=== PATIENT | female | born 1995 | race Caucasian/White ===

== ENCOUNTER 2020-02-20 13:53 | Outpatient (CLI) | payer OTHER, SELFPAY ==
--- NOTE | ~2020-02-20 | XR_ITS ---
EXAMINATION: XR chest 2V EXAM DATE: 02/20/2020 14:28 INDICATION: Cough. TECHNIQUE: Frontal and lateral projections of the chest obtained and reviewed. Comparison is made to prior examination from 11/23/2017. FINDINGS: The lungs are clear. There are no pleural effusions. The cardiomediastinal silhouette is within normal limits. There is no pneumothorax suspected. The bones and soft tissues are unremarkab le. IMPRESSION: No acute cardiopulmonary findings. Reviewed, dictated and finalized at location A.
== END 2020-02-20 13:54 | disposition home or self-care (01) ==
LOC: ANHIMG 13:57
PROVIDERS: PCP Family Medicine; Visit Provider Nurse Practitioner Family
DX: R05 Cough (principal)
CPT/HCPCS: 71046; 87635; C9803; U0003

== ENCOUNTER 2020-05-23 15:44 | Outpatient (CLI) | payer OTHER, SELFPAY ==
--- NOTE | ~2020-05-23 | US_ITS ---
EXAMINATION: US OB <= 14 weeks fetus DATE: 05/23/2020 16:53 INDICATION: Encounter for supervision of normal , first trimester TECHNIQUE: Real-time pelvic transabdominal and transvaginal ultrasound was performed. COMPARISON: None. FINDINGS: The uterus measures 8.2 x 5.7 x 6.1 cm. There is an intrauterine gestational sac. A yolk s ac is identified. heart motion is identified measuring 165 beats per minute (bpm) by M-mode Dop pler. The crown rump length measures 1.6 cm , which correlates with an estimated gestational ag e of 8 weeks and 0 day(s) (+/-) 5 day(s). The right ovary measures 5.3 x 2.8 x 2.7 cm and contains a complex cyst. The left ovary measures 2.9 x 1.9 x 1.9 cm. There is normal vascular flow in the ovaries. There is no free fluid in the pelvis. IMPRESSION: 1. Live intrauterine with an estimated gestational age of 8 weeks and 0 day(s) (+/-) 5 day( s) and an estimated delivery date of 01/02/2021. Reviewed, dictated and finalized at location A. IMPRESSION: 1. Live intrauterine with an estimated gestational age of 8 weeks and 0 day(s) (+/-) 5 day(s) and an estimated delivery date of 01/02/2021.
== END 2020-05-23 15:45 | disposition home or self-care (01) ==
PROVIDERS: PCP Family Medicine; Visit Provider Student in an Organized Health Care Education/Training Program
DX: Z34.91 Encounter for supervision of normal pregnancy, unspecified, first trimester (principal); Z3A.08 8 weeks gestation of pregnancy
CPT/HCPCS: 76801

== ENCOUNTER 2020-10-02 08:31 | Outpatient (CLI) | payer OTHER, SELFPAY ==
[2020-10-02 10:25] LABS: Basophils Percent Auto 0.4 % (0.2-1.2); Eosinophils Absolute Auto 0.1 K/mm3 (0-0.3); Eosinophils Percent Auto 0.8 % (0-4.4); Hematocrit 32.7 % (37.0-47.0); Hemoglobin 10.7 g/dL (12.0-15.0); Immature Granulocyte Absolute 0.11 K/mm3 (0.00-0.031); Mean Corpuscular HGB Conc 32.7 g/dl (32-36); Mean Corpuscular Hemoglobin 29.5 pg (26-34); Mean Corpuscular Volume 90.1 fl (80-100); Mean Platelet Volume 9.7 fl (7.4-10.4); Monocytes Absolute Auto 0.8 K/mm3 (0.1-0.6); Monocytes Percent Auto 7.3 % (2.6-8.5); Neutrophils Absolute Auto 8.2 K/mm3 (1.3-6.7); Neutrophils Percent Auto 76.5 % (45.5-73.1); Platelet Count Result 224 k/mm3 (150-375); Red Blood Count 3.63 M/mm3 (4.2-5.4); Red Cell Distribution Width 13.8 % (11.5-14.5); White Blood Count 10.8 K/mm3 (4.5-10.0)
[2020-10-02 10:35] LABS: Glucose 1 Hour PP 50gm Dose 124 mg/dL
== END 2020-10-02 08:32 | disposition home or self-care (01) ==
PROVIDERS: PCP Family Medicine; Visit Provider Student in an Organized Health Care Education/Training Program
DX: Z34.02 Encounter for supervision of normal first pregnancy, second trimester (principal); Z3A.00 Weeks of gestation of pregnancy not specified
CPT/HCPCS: 36415; 82947; 85025

== ENCOUNTER 2020-11-11 16:21 | Outpatient (CLI) | payer OTHER, SELFPAY ==
--- NOTE | ~2020-11-11 | US_ITS ---
EXAMINATION: US venous doppler LE RT DATE: 11/11/2020 16:56 INDICATION: Right lower limb pain. -related symptoms. TECHNIQUE: Grayscale ultrasound images without and with compression and Doppler ultrasound images of the right lower extremity veins were obtained. COMPARISON: None. FINDINGS: The visualized portions of right common femoral vein, profunda (deep) femoral vein, femoral vein, pop liteal vein, peroneal trunk, posterior tibial veins, peroneal veins, gastrocnemius vein and greater s aphenous vein outflow are patent. IMPRESSION: 1. No deep venous thrombosis in the right lower limb. Reviewed, dictated and finalized at location A. L [employer]ERING [employer]
== END 2020-11-11 16:22 | disposition home or self-care (01) ==
PROVIDERS: PCP Family Medicine; Visit Provider Student in an Organized Health Care Education/Training Program
DX: O26.893 Other specified pregnancy related conditions, third trimester (principal); Z3A.00 Weeks of gestation of pregnancy not specified; M79.604 Pain in right leg
CPT/HCPCS: 93971

== ENCOUNTER 2020-11-25 15:53 | Outpatient (CLI) | payer OTHER, SELFPAY ==
[2020-11-25 16:30] LABS: Basophils Percent Auto 0.2 % (0.2-1.2); Eosinophils Absolute Auto 0.1 K/mm3 (0-0.3); Eosinophils Percent Auto 0.7 % (0-4.4); Hematocrit 31.2 % (37.0-47.0); Hemoglobin 10.4 g/dL (12.0-15.0); Immature Granulocyte Absolute 0.15 K/mm3 (0.00-0.031); Immature Granulocyte Percent A 1.2 % (0-0.5); Lymphocytes Absolute Auto 1.75 K/mm3 (0.9-3.2); Lymphocytes Percent Auto 13.9 % (18.3-44.2); Mean Corpuscular HGB Conc 33.3 g/dl (32-36); Mean Corpuscular Hemoglobin 28.8 pg (26-34); Mean Corpuscular Volume 86.4 fl (80-100); Mean Platelet Volume 10.4 fl (7.4-10.4); Monocytes Absolute Auto 0.9 K/mm3 (0.1-0.6); Monocytes Percent Auto 7.5 % (2.6-8.5); Neutrophils Absolute Auto 9.6 K/mm3 (1.3-6.7); Neutrophils Percent Auto 76.5 % (45.5-73.1); Platelet Count Result 216 k/mm3 (150-375); Red Blood Count 3.61 M/mm3 (4.2-5.4); Red Cell Distribution Width 13.7 % (11.5-14.5); White Blood Count 12.6 K/mm3 (4.5-10.0)
[2020-11-25 17:25] LABS: HIV 1/2 Ab P24 Ag Result Negative (Negative)
[2020-11-26 10:38] LABS: Rapid Plasma Reagin Non-Reactive (NonReactive)
== END 2020-11-25 15:54 | disposition home or self-care (01) ==
LOC: ANHLAB 15:54
PROVIDERS: PCP Family Medicine; Visit Provider Student in an Organized Health Care Education/Training Program
DX: Z34.03 Encounter for supervision of normal first pregnancy, third trimester (principal); Z3A.00 Weeks of gestation of pregnancy not specified
CPT/HCPCS: 36415; 85025; 86592; 86703; G0432

== ENCOUNTER 2020-12-24 09:56 | Outpatient (CLI) | payer OTHER, SELFPAY ==
[2020-12-24 10:15] VITALS: TEMP 37.2; BMI 44.6
--- NOTE | 2020-12-24 10:15 | OBADM ---
This patient, Niesha Llamas, admitted to the OB room 111 for observation for headache and increase in edema. Patient/family oriented to hospital policies and general routines including ID bracelet, bed and alarms, visiting hours, pain management, procedures, bathroom and other care routines, personal items, smoking policy, room service/diet, and visiting hours. Patient/Family are encouraged to report perceived risks to care and to ask questions if they do not understand what they are told or what they should do.
[2020-12-24 10:46] VITALS: BP 116/78; PULSE 94
[2020-12-24 11:01] VITALS: BP 113/74; PULSE 91
[2020-12-24] MEDS: ACETAMINOPHEN 500 MG TABLET 1000 MG PO (11:01)
[2020-12-24 11:31] VITALS: BP 116/82; PULSE 78
[2020-12-24 12:01] VITALS: BP 122/69; PULSE 72
[2020-12-24 12:20] VITALS: TEMP 36.8
== END 2020-12-24 12:51 | disposition home or self-care (01) ==
LOC: ANHOBPP 12:33 → ANHOBOP 12-25 11:22
PROVIDERS: PCP Family Medicine; Visit Provider Student in an Organized Health Care Education/Training Program
DX: R51.9 Headache, unspecified (principal); R60.0 Localized edema
CPT/HCPCS: 99199; A9270; G0378; G0379

== ENCOUNTER 2020-12-28 16:50 | Inpatient (IN) | payer OTHER, SELFPAY ==
[2020-12-28] VITALS (8 sets, daily range): BP systolic 97–123; BP diastolic 54–92; PULSE 80–84; TEMP 36.5–36.8; BMI 44.5
[2020-12-28 17:29] LABS: Basophils Percent Auto 0.2 % (0.2-1.2); Eosinophils Absolute Auto 0.1 K/mm3 (0-0.3); Eosinophils Percent Auto 1.1 % (0-4.4); Hematocrit 31.3 % (37.0-47.0); Hemoglobin 10.4 g/dL (12.0-15.0); Immature Granulocyte Absolute 0.12 K/mm3 (0.00-0.031); Immature Granulocyte Percent A 1.1 % (0-0.5); Lymphocytes Absolute Auto 1.58 K/mm3 (0.9-3.2); Lymphocytes Percent Auto 13.9 % (18.3-44.2); Mean Corpuscular HGB Conc 33.2 g/dl (32-36); Mean Corpuscular Hemoglobin 28.6 pg (26-34); Mean Platelet Volume 10.5 fl (7.4-10.4); Monocytes Percent Auto 8.9 % (2.6-8.5); Neutrophils Absolute Auto 8.6 K/mm3 (1.3-6.7); Neutrophils Percent Auto 74.8 % (45.5-73.1); Platelet Count Result 193 k/mm3 (150-375); Red Blood Count 3.64 M/mm3 (4.2-5.4); Red Cell Distribution Width 15.1 % (11.5-14.5); White Blood Count 11.4 K/mm3 (4.5-10.0)
[2020-12-28] MEDS: DINOPROSTONE 10 MG VAG INSERT VAGINAL (18:12)
--- NOTE | 2020-12-28 18:35 | LDADM ---
This patient, Niesha Llamas, was admitted to Labor/Delivery/Recovery 108 on 12/28/20 at 16:50. Plans for labor, pain management and were discussed with patient. Patient/family oriented to hospital policies and general routines including ID bracelet, bed and alarms, visiting hours, pain management, procedures, bathroom and other care routines, personal items, smoking policy, room service/diet and guest tray routines, infant security routines, and visiting hours. Patient/Family are encouraged to report perceived risks to care and to ask questions if they do not understand what they are told or what they should do. See OBIX for further documentation.
[2020-12-29] VITALS (23 sets, daily range): BP systolic 103–129; BP diastolic 57–79; PULSE 76–100; TEMP 36.6–37
[2020-12-29] MEDS: OXYTOCIN 30 UNITS/NS 500 ML 30 UNITS/500 ML BAG 6 UNITS IV CONT (06:39)
[2020-12-29] MEDS: LACTATED RINGERS 1,000 ML 125 ML IV CONT ×2 (06:39→20:49)
--- NOTE | 2020-12-29 08:30 | PM.IMHP ---
H&P: HPI History of Present Illness Date/Time: 12/29/20 08:30 Patient is a 25-year-old last menstrual period unknown. Patient is currently 39 weeks and 3 days gestation with an CASA 01/02/2021. Patient is dated by an ultrasound on 05/23/2020 weeks gestation. Patient presented to Labor and delivery on the evening of 12/28/2019 for scheduled elective induction of labor at term. Patient reports feeling well. Denies any vaginal bleeding, leakage of fluid, or contractions. Reports good movement. Chief Complaint: induction of labor Narrative: Niesha Llamas is a 25 year old female Review of Systems Review of Systems: All systems reviewed & are unremarkable except as noted in HPI and below Constitutional: Constitutional: Reports as per HPI, Reports no additional constitutional complaints, Denies chills, Denies fever(s), Denies headache(s) and Denies night sweats Eyes: Eyes: Reports as per HPI and Reports no additional eye complaints ENT: Reports system reviewed and no additional complaints, except as documented, Reports as per HPI, Reports Normal hearing present and Denies headache(s) Cardiovascular: Cardiovascular: Reports as per HPI, Reports no additional cardiovascular complaints, Denies chest pain and Denies dyspnea Respiratory: Respiratory: Reports as per HPI, Reports no additional respiratory complaints, Denies cough and Denies dyspnea Gastrointestinal: Gastrointestinal: Reports as per HPI, Reports no additional gastrointestinal complaints, Denies abdominal pain, Denies change in bowel habits, Denies change in stool character, Denies nausea and Denies vomiting Genitourinary: Genitourinary: Reports no additional female genitourinary complaints, Reports as per HPI, Denies abnormal vaginal bleeding, Denies genital lesions, Denies hot flashes, Denies dyspareunia, Denies pelvic pain, Denies sexual dysfunction, Denies urinary incontinence, Denies vaginal discharge, Denies vaginal dryness and Denies vaginal odor Musculoskeletal: Musculoskeletal: Reports no additional musculoskeletal complaints and Reports as per HPI Integumentary/Breasts: Skin/Breast: Reports system reviewed and no additional complaints, except as docu, Reports as per HPI, Denies breast pain and Denies nipple discharge Neurologic: Reports system reviewed and no additional complaints, except as documented, Reports as per HPI, Reports Normal hearing present and Denies headache(s) Psychiatric: Psychiatric: Reports no additional psychiatric complaints, Reports as per HPI, Denies anxiety and Denies depression Endocrine: Endocrine: Reports no additional endocrine complaints and Reports as per HPI Hematologic/Lymphatic: Hematologic/Lymphatic: Reports no additional hematologic/lymphatic complaints and Reports as per HPI Allergic/Immunologic: Allergic/Immunologic: Reports no additional allergic/immunologic complaints and Reports as per HPI PMFSH Past Medical History Medical History (Updated 12/29/20 @ 08:35 by Jing Ding MD) Anxiety HSV-1 (herpes simplex virus 1) infection Surgical History Surgical History [place] teeth removed Family History Family History Grandparent Diabetes mellitus Carcinoma of colon Father Hypertension Family history of migraine headaches Sibling Family history of migraine headaches Social History Social History Smoking status: Never smoker Second hand tobacco smoke exposure: No Alcohol intake: never Substance use: never Spiritual care concerns: No Meds Home Medications and Allergies Home Medications Medication Instructions Recorded Confirmed Type PNV-DHA 1 cap PO HS 12/24/20 12/24/20 History Slow Fe 142 mg PO HS 12/24/20 12/24/20 History acetaminophen 1,000 mg PO Q6H PRN 12/24/20 12/24/20 History Allergies Allergy/AdvReac Type Severit
--- NOTE | 2020-12-29 08:36 | WPDHPUPDATE1 ---
History and Physical Update Update Date/Time: 12/29/20 08:36 History and Physical has been reviewed, including an updated exam of the patient. There are NO changes in the patient's condition. Risks, benefits, and alternatives have been discussed and questions answered. Patient agrees to proceed with procedure.
--- NOTE | 2020-12-29 09:04 | WPDHPUPDATE1 ---
History and Physical Update Update Date/Time: 12/29/20 09:04 History and Physical has been reviewed, including an updated exam of the patient. There are NO changes in the patient's condition. Risks, benefits, and alternatives have been discussed and questions answered. Patient agrees to proceed with procedure.
[2020-12-29 09:55] LABS: Rapid Plasma Reagin Non-Reactive (NonReactive)
--- NOTE | 2020-12-29 12:23 | WPDANESEPP ---
Anes - Eval Pre Procedure Procedure: Labor epidural Date/Time: 12/29/20 12:23 Surgeon: Timur Preop Diagnosis: Abd pain with contractions Pre Op Diagnosis: Induction of Labor Patient Data Age: 25 Gender: F Height: 5 ft 7 in Weight: 129 kg Last Vital Signs Temp 98 F 12/29/20 07:23 Pulse 78 12/29/20 12:00 BP 115/68 12/29/20 12:00 Allergies Allergy/AdvReac Type Severity Reaction Status Date / Time No Known Allergies Allergy Verified 12/26/20 13:59 Home Medications Medication Instructions Recorded Confirmed Type PNV-DHA 1 cap PO HS 12/24/20 12/24/20 History Slow Fe 142 mg PO HS 12/24/20 12/24/20 History acetaminophen 1,000 mg PO Q6H PRN 12/24/20 12/24/20 History Laboratory Tests 12/28/20 12/28/20 12/28/20 17:19 17:19 17:19 WBC 11.4 K/mm3 H K/mm3 (4.5-10.0) RBC 3.64 M/mm3 L M/mm3 (4.2-5.4) Hgb 10.4 g/dL L g/dL (12.0-15.0) Hct 31.3 % L % (37.0-47.0) MCV 86.0 fl fl (80-100) MCH 28.6 pg pg (26-34) MCHC 33.2 g/dl g/dl (32-36) RDW 15.1 % H % (11.5-14.5) Plt Count 193 k/mm3 k/mm3 (150-375) MPV 10.5 fl H fl (7.4-10.4) Immature Gran % (Auto) 1.1 % H % (0-0.5) Neut % (Auto) 74.8 % H % (45.5-73.1) Lymph % (Auto) 13.9 % L % (18.3-44.2) [place] % (Auto) 8.9 % H % (2.6-8.5) Eos % (Auto) 1.1 % % (0-4.4) Baso % (Auto) 0.2 % % (0.2-1.2) Lymph # (Auto) 1.58 K/mm3 K/mm3 (0.9-3.2) [place] # (Auto) 1.0 K/mm3 H K/mm3 (0.1-0.6) Eos # (Auto) 0.1 K/mm3 K/mm3 (0-0.3) Baso # (Auto) 0.0 K/mm3 K/mm3 (0.0-0.1) Abs Immat Gran (auto) 0.12 K/mm3 H K/mm3 (0.00-0.031) Absolute Neuts (auto) 8.6 K/mm3 H K/mm3 (1.3-6.7) Absolute Nucleated RBC 0.0 K/mm3 K/mm3 (0.0-0.012) Nucleated RBC % 0.0 % % (0.0-0.2) RPR Non-reactive (NonReactive) Blood Type A Positive Antibody Screen Negative Patient hx anesthesia problems: none Family hx anesthesia problems: none PMFSH Past Medical History Medical History Anxiety HSV-1 (herpes simplex virus 1) infection Morbid obesity Obesity affecting and not yet delivered Surgical History Surgical History [place] teeth removed Family History Family History Grandparent Diabetes mellitus Carcinoma of colon Father Hypertension Family history of migraine headaches Sibling Family history of migraine headaches Social History Social History Smoking status: Never smoker Second hand tobacco smoke exposure: No Alcohol intake: never Substance use: never Spiritual care concerns: No Exam Day of Procedure 12/29/20 12:23 Patient weight: morbidly obese Airway: Mallampati scale class II Neurological: alert and oriented
[2020-12-30] VITALS (183 sets, daily range): BP systolic 71–147; BP diastolic 40–124; PULSE 32–126; RESP 16–20; TEMP 36.4–38.7; O2SAT 70–100
[2020-12-30] MEDS: OXYTOCIN 30 UNITS/NS 500 ML 30 UNITS/500 ML BAG 6 UNITS IV CONT (07:12)
[2020-12-30] MEDS: LACTATED RINGERS 1,000 ML 125 ML IV CONT ×3 (07:39→19:11)
--- NOTE | 2020-12-30 08:32 | P.PNOB_ITS ---
OB - PN: Subj Subjective Date/time seen: 12/30/20 08:32 Patient seen at bedside at 7:10 a.m. Doing well. SVE /-2. AROM performed, clear fluid noted. EFM category 1. [place] shows irregular contractions. Plan is to continue pitocin. Continuous EFM and toco. Patient may have an epidural when desired. OB - PN: Obj Data Labs CBC & Chem 7: 12/28/20 17:19 Labs: Laboratory Results - last 24 hr 12/28/20 17:19 RPR Non-reactive OB - PN A/P Time Spent With Patient Time: Total time spent is greater than 50% in coordination of care (as document ed) at patient's floor/unit and/or counseling patient:
--- NOTE | 2020-12-30 18:44 | PM.OBPNLAB ---
Pain Control Date/time seen: 12/30/20 18:44 Patient progressed to fully dilated at approx. 4:00 p.m. She was encouraged to begin pushing. head was at -1 station at onset of pushing. Patient pushed for approximately 2 hrs 30 mins. during which time head descended to 0 station. There was increasing caput noted as well. Patient became increasingly fatigued and frustrated by lack of progress. Discussion had with patient regarding low likelihood of successful vaginal delivery. Recommendation was made to proceed with a section for arrest of descent. Risks and benefits of a section were discussed with patient and . Patient implied an understanding and agrees with plan. Anesthesia notified. Was also notified by RN that recent temp to 101.7. There is concern for possible chorioamnionitis as intermittent episodes of tachycardia has also been noted on EFM during pushing course. Will plan to treat postoperatively as antibiotics will not be able to be administered prior to section. All questions and concerns addressed.
--- NOTE | 2020-12-30 18:46 | WPDANESEFPP ---
Anes - Eval Final PreProcedure Day of Procedure 12/30/20 18:46 Patient weight: morbidly obese Heart: regular rate and rhythm Lungs: clear to auscultation and normal air movement Airway: Mallampati scale class II Neurological: alert and oriented Last oral intake: >/= 8 hours ASA classification: III Emergent: no Anesthetic plan: proceed Anesthesia type and monitoring: regional epidural and standard monitoring Other findings: C section Informed Consent: The patient's anesthetic plan and its attendant risks and benefits were discussed with the patient/family/POA. Questions were solicited and answers provided to the satisfaction of the patient/family/POA.
[2020-12-30] MEDS: ceFAZolin 3 GM/D5W 100 ML 100 ML IVPB (18:58)
[2020-12-30] MEDS: MORPHINE SULFATE (*CRX) 2 MG/ML INJ IV PUSH (20:58)
--- NOTE | 2020-12-30 21:03 | PM.PROC ---
Procedure Note - Detailed Date of procedure: 12/30/20 Pre-op diagnosis: Induction of Labor Intrauterine at 39w4d Arrest of dilation Post-op diagnosis: same Procedure performed: Primary low transverse section via Pfannenstiel Description of procedure: The patient was taken to the operating room, where she was transferred to the operating room table. The patient was placed in dorsal supine position with a leftward tilt. She was prepped and draped in the usual sterile fashion. Epidural anesthesia was tested and found to be adequate. A Pfannenstiel skin incision was made with a scalpel and carried through to underlying layer of fascia with the Bovie. The fascia was incised in the midline and the incision was extended laterally with the use of forceps and Carmen scissors. The inferior aspect of the fascial incision was grasped with Mary clamps, elevated, and the underlying rectus muscle were dissected off with Carmen scissors. Attention was then turned to the superior aspect of the fascial incision, which in a similar manner, was grasped with Mary clamps, elevated, and the underlying rectus muscles were also dissected off with Carmen scissors. The rectus muscles were in the midline and the peritoneal cavity was entered bluntly. This incision was extended superiorly and inferiorly with good visualization of the bladder and care was taken to avoid blood vessels. A bladder blade was inserted. The vesicouterine peritoneum was identified and incised sharply with Metzenbaum scissors. This incision was extended laterally with Metzenbaum scissors and a bladder flap was created digitally. The bladder blade was replaced. A low-transverse uterine incision was made with a scalpel. This incision was extended laterally with bandage scissors. Amniotomy was performed. Clear amniotic fluid was noted. The 's head was deep within the pelvis. The head was grasped and the body as well as the head was gently guided superiorly to the level of the uterine incision. The infant's head was delivered easily and atraumatically without difficulty followed by the neck, shoulders, and rest of body with gentle fundal pressure. The infant's nose and mouth were suctioned bulb suction. The was crying spontaneously. The cord was clamped and cut and the was handed off to waiting nursing staff. A segment of cord was collected for cord gases. Cord blood was also collected. The placenta was then delivered manually with gentle uterine massage. Uterus was exteriorized and cleared of all clots and debris. The uterus was noted to be atonic. Vigorous massage was performed. The uterine incision was reapproximated with 0 Vicryl in a running, locked fashion. Several areas of bleeding beneath the incision as well as along the right aspect of the incision were noted to be bleeding. These areas were made hemostatic with a combination of 2-0 Monocryl and 0 Vicryl using short running locked segments and figure of eight sutures. A second imbricating layer using 0 Monocryl performed. On inspection, the uterus, ovaries, and fallopian tubes appeared to be normal bilaterally. The uterus was replaced into the abdominal cavity. The gutters were cleared of all clots and debris. The uterine incision was inspected again. A bleeding vessel was noted again along the right aspect of the uterine incision. This vessel was ligated with 0 Vicryl. Excellent hemostasis was noted. Hemaderm was applied across the uterine incision. Seprafilm was also applied across the uterine incision and anterior surface of the uterus. The peritoneum was reapproximated with 2-0 Monocryl. The fascia was then closed with 0 Vicryl in a running fashion. The subcutaneous layer was irrigated with water. Pinpoint areas of bleeding were made hemostatic with Bovie. The subcutaneous layer was reapproximated with 2-0 plain and the skin was then closed with 4-0 Monocryl in a subcuticular fashion. The skin was cleansed and dried. Dermaflex skin a
[2020-12-30] MEDS: OXYTOCIN 30 UNITS/NS 500 ML 30 UNITS/500 ML BAG 125 UNITS IV CONT (22:15)
[2020-12-30] MEDS: CLINDAMYCIN 900 MG/D5W 50 ML 900 MG/50 ML PIGGYBACK 50 MG IVPB (23:25)
[2020-12-31] VITALS (9 sets, daily range): BP systolic 107–146; BP diastolic 51–84; PULSE 70–87; RESP 16–18; TEMP 36.7–37; O2SAT 98–100
[2020-12-31] MEDS: AMPICILLIN 2 GM/NS 100 ML 2 GM/100 ML BAG IVPB ×4 (00:50→21:00)
[2020-12-31] MEDS: GENTAMICIN SULFATE INJ 445 MG in DEXTROSE 5% 100 ML 111.13 MG IVPB (01:45)
[2020-12-31] MEDS: HYDROcodone/acetaminophen (*CRX) 5-325 MG TABLET 1 TAB PO ×2 (04:27→07:47)
[2020-12-31] MEDS: IBUPROFEN 600 MG TABLET PO ×3 (04:28→19:43)
[2020-12-31] MEDS: DEXTROSE 5%/0.45% SOD CHL 1,000 ML 125 ML IV CONT ×2 (04:45→13:49)
[2020-12-31 05:12] LABS: Basophils Percent Auto 0.2 % (0.2-1.2); Eosinophils Absolute Auto 0.1 K/mm3 (0-0.3); Eosinophils Percent Auto 0.6 % (0-4.4); Hematocrit 25.4 % (37.0-47.0); Hemoglobin 8.2 g/dL (12.0-15.0); Immature Granulocyte Absolute 0.09 K/mm3 (0.00-0.031); Immature Granulocyte Percent A 0.7 % (0-0.5); Lymphocytes Absolute Auto 1.35 K/mm3 (0.9-3.2); Lymphocytes Percent Auto 11.2 % (18.3-44.2); Mean Corpuscular HGB Conc 32.3 g/dl (32-36); Mean Corpuscular Hemoglobin 28.3 pg (26-34); Mean Corpuscular Volume 87.6 fl (80-100); Mean Platelet Volume 10.4 fl (7.4-10.4); Monocytes Absolute Auto 1.1 K/mm3 (0.1-0.6); Monocytes Percent Auto 8.8 % (2.6-8.5); Neutrophils Absolute Auto 9.5 K/mm3 (1.3-6.7); Neutrophils Percent Auto 78.5 % (45.5-73.1); Platelet Count Result 165 k/mm3 (150-375); Red Cell Distribution Width 15.3 % (11.5-14.5); White Blood Count 12.1 K/mm3 (4.5-10.0)
[2020-12-31] MEDS: DOCUSATE SODIUM 100 MG CAPSULE PO ×2 (07:46→16:50)
[2020-12-31] MEDS: MULTIVIT/MIN/PREN/FOL AC/IRON TABLET 1 TAB PO (07:46)
[2020-12-31] MEDS: POLYSACCHARIDE IRON COMPLEX 150 MG CAPSULE PO ×2 (07:46→16:50)
[2020-12-31] MEDS: CLINDAMYCIN 900 MG/D5W 50 ML 900 MG/50 ML PIGGYBACK 50 MG IVPB ×2 (08:51→16:50)
--- NOTE | 2020-12-31 09:10 | PC.NURSE ---
Mother called out for assist with feeding. Consulted with patient, reports has had some difficulties with latching and has been given the nipple shield. Discussed nipple shield precautions and possible complications. Suggested to attempt to breast first without shield, if unable to latch return to shield use. Instructions given on application and cleaning of shield. . Patient able to return demonstration on proper application of shield. Discussed the need to initiate pumping if continues to nurse with the shield. Patient verbalizes understanding. Mother has nipple discomfort to right nipple with latch and during most of the feeding. Both nipples are reddened, nipple care reviewed and lanolin provided. Reviewed infant feeding cues, frequencies, duration of feedings, feeding elimination flow sheet, and signs of adequate intake. Demonstrated stimulation techniques to wake for feeding. Assisted with infant to left breast without shield. Reviewed positioning/alignment in football cross cradle, holding breast in C hold and guided asymmetrical latch on. was able to latch correctly within a few attempts. nursed eagerly, with steady draws and frequent swallowing noted. Reviewed signs of a correct latch, effective nursing and suck swallow ratio. Infant was able to maintain latch. Mother reported tenderness at times, infant had slipped to shallow latch. Demonstrated how to adjust latch more deeply while feeding. Mother quickly reports she can feel is latched more deeply and has minimal tenderness. Suggested to stimulate infant while feeding to keep infant awake and nursing effectively for increased stimulation and increased intake. Instructed mother to call out for RN assistance if she is unable to latch infant for feeding or she has discomfort with nursing. Instructed feeding should be initiated three hours from start of last feeding or if feeding cues are noted before. Mother voiced understanding of information shared.
--- NOTE | 2020-12-31 11:27 | WPDANLDPN2 ---
Anes-Prog Note L&D Date/Time: 12/31/20 11:27 Comfortable throughout: section Epidural/Spinal procedure site: clean & non-tender Neuro status: Neuro function grossly intact. Cardiovascular status: normal Respiratory status: normal Airway patency: baseline Mental status: baseline Post-Op hydration status: normal Vital Signs: Last Vital Signs Temp 36.8 C 12/31/20 07:45 Pulse 84 12/31/20 07:45 Resp 16 12/31/20 07:45 BP 111/74 12/31/20 07:45 Pulse Ox 98 12/31/20 07:45 Pain score (VAS): 1 I/O: Intake & Output 12/30/20 12/31/20 12/31/20 23:59 07:59 15:59 Intake Total 2300 1050 150 Output Total 528 400 Balance 1772 650 150 Post-procedural complaints: none Patient feedback: Patient satisfied with anesthetic care.
[2020-12-31] MEDS: HYDROcodone/acetaminophen (*CRX) 10-325 MG TABLET 1 TAB PO ×4 (11:28→22:55)
--- NOTE | 2020-12-31 11:33 | WPDANLDNPN2 ---
Anes-Prog Note L&D-Neuraxial Date/Time: 12/31/20 11:33 Neuraxial medications: epidural PF morphine Opiod-related complaints: none Patient feedback: Patient satisfied with post-operative pain management.
--- NOTE | 2020-12-31 12:18 | P.PNOB_ITS ---
OB - PN: Subj Subjective Date/time seen: 12/31/20 12:18 Late entry. Patient seen at approx. 7:40 a.m. Reports feeling extremely tired, however, otherwise, doing well. Pain well controlled with medication. Denies any headache, chest pain, SOB, N/V. Minimal- moderate lochia. No ambulation yet. Vivar catheter in place. OB - PN: Obj Data Labs CBC & Chem 7: 12/31/20 04:11 Labs: Laboratory Results - last 24 hr 12/31/20 04:11 WBC 12.1 H RBC 2.90 L Hgb 8.2 L Hct 25.4 L MCV 87.6 MCH 28.3 MCHC 32.3 RDW 15.3 H Plt Count 165 MPV 10.4 Immature Gran % (Auto) 0.7 H Neut % (Auto) 78.5 H Lymph % (Auto) 11.2 L [place] % (Auto) 8.8 H Eos % (Auto) 0.6 Baso % (Auto) 0.2 Lymph # (Auto) 1.35 [place] # (Auto) 1.1 H Eos # (Auto) 0.1 Baso # (Auto) 0.0 Abs Immat Gran (auto) 0.09 H Absolute Neuts (auto) 9.5 H Absolute Nucleated RBC 0.0 Nucleated RBC % 0.0 OB - PN A/P Assessment and Plan (1) Delivery by section using transverse incision of lower segment of uterus: Code(s): O82 - Encounter for delivery without indication Status: Acute Assessment and Plan: POD#1 doing well continue routine postoperative care dc vivar encourage ambulation (2) Chorioamnionitis: Code(s): O41.1290 - Chorioamnionitis, unspecified trimester, not applicable or unspecified Status: Acute Assessment and Plan: afebrile continue antibiotics x 24 hours Time Spent With Patient Time: Total time spent is greater than 50% in coordination of care (as documented) at patient's floor/unit and/or counseling patient: Exam Const: General: cooperative, healthy appearing, comfortable and no acute distress GI: Inspection: non-distended GI Palp: Yes Soft to palpation and Yes Tenderness to palpation present (GI) (appropriately tender) Other: fundus firm below umbilicus; inc covered with bandage c/d/i Extrem: Right lower extremity: edema Details: 2+ Left lower extremity: edema Details: 2+
--- NOTE | 2020-12-31 12:30 | PC.NURSE ---
Mother called out for assist with feeding. Assisted with to right breast without shield. Reviewed positioning/alignment in football cross cradle, holding breast in C hold and guided asymmetrical latch on. made several eager attempts and was was unable to latch correctly. Right nipple is more round and slightly flat to left nipple. Shield applied. Infant latched quickly nursing eagerly, with steady draws and frequent swallowing noted. Reviewed signs of a correct latch, effective nursing and suck swallow ratio. was able to maintain latch. Mother reported tenderness at times, had slipped to shallow latch. Demonstrated how to adjust latch more deeply while feeding. Mother quickly reports she can feel is latched more deeply and has minimal tenderness. Right nipple has a small scab to center, reviewed nipple care. Suggested to stimulate infant while feeding to keep infant awake and nursing effectively for increased stimulation and increased intake. Advised mother pumping should be initiated after this feeding. Instructed mother to call out for RN assistance if she is unable to latch for feeding or she has discomfort with nursing. Instructed feeding should be initiated three hours from start of last feeding or if feeding cues are noted before. Mother voiced understanding of information shared.
--- NOTE | 2020-12-31 14:48 | PC.NURSE ---
Breast pump provided due to nipple shield use. Instructions given on breast pump care and usage, pumping schedule, nipple care, and collection and storage of breast milk. Encouraged [id number], breast massage and manual expression to stimulate supply. Assessed patient for correct flange size, placement and draw. Patient verbalizes and demonstrates understanding of instructions.
[2020-12-31 15:42] LABS: Gentamicin Random 1.7 ug/mL (5.0-12.0)
[2020-12-31] MEDS: SIMETHICONE 80 MG TAB.CHEW PO ×2 (19:43→21:40)
[2021-01-01] MEDS: HYDROcodone/acetaminophen (*CRX) 10-325 MG TABLET 1 TAB PO ×3 (03:20→14:41)
[2021-01-01 06:22] LABS: Estimated CRCL calculation 148 ml/min; Estimated Glomerular Filt Rate > 60
[2021-01-01 08:15] VITALS: BP 120/73; PULSE 100; RESP 18; TEMP 36.9; O2SAT 99
--- NOTE | 2021-01-01 08:24 | P.PNOB_ITS ---
OB - PN: Subj Subjective Date/time seen: 01/01/21 08:24 Patient doing well this morning. Pain well controlled with medication. Denies any headache, chest pain, shortness of breath, nausea, or vomiting. Ambulating without difficulty. Voiding well. No passage of flatus yet. OB - PN: Obj Data Labs CBC & Chem 7: 12/31/20 04:11 01/01/21 05:53 Labs: Laboratory Results - last 24 hr 12/31/20 01/01/21 14:25 05:53 Creatinine 0.70 Estim Creat Clear Calc 148 Estimated GFR > 60 Random Gentamicin 1.7 L OB - PN A/P Assessment and Plan (1) Delivery by section using transverse incision of lower segment of uterus: Code(s): O82 - Encounter for delivery without indication Status: Acute Assessment and Plan: POD#2 doing well continue routine postoperative care encourage ambulation and use of IS anticipate dc home tomorrow (2) Chorioamnionitis: Code(s): O41.1290 - Chorioamnionitis, unspecified trimester, not applicable or unspec ified Status: Acute Assessment and Plan: s/p antibiotics x 24 hours Time Spent With Patient Time: Total time spent is greater than 50% in coordination of care (as documented) at patient's floor/unit and/or counseling patient: Exam Const: General: cooperative, healthy appearing, comfortable and no acute distress GI: GI Palp: Yes Soft to palpation and Yes Tenderness to palpation present (GI) (appropriately tender) Other: fundus firm below umbilicus; inc c/d/i Extrem: Right lower extremity: edema Details: 2+ Left lower extremity: edema Details: 2+
[2021-01-01] MEDS: MULTIVIT/MIN/PREN/FOL AC/IRON TABLET 1 TAB PO (09:04)
[2021-01-01] MEDS: POLYSACCHARIDE IRON COMPLEX 150 MG CAPSULE PO ×2 (09:04→19:40)
[2021-01-01] MEDS: DOCUSATE SODIUM 100 MG CAPSULE PO ×2 (09:04→19:40)
[2021-01-01] MEDS: IBUPROFEN 600 MG TABLET PO ×3 (09:05→23:35)
--- NOTE | 2021-01-01 09:50 | PC.NURSE ---
Consult with pt., mother reports she bottle fed during the night. Infant has been sleepy today and she plans to pump and bottle feed today. Requested mother call out if she desires assist.
[2021-01-01] MEDS: SIMETHICONE 80 MG TAB.CHEW PO ×3 (14:40→23:35)
--- NOTE | 2021-01-01 15:39 | PC.NURSE ---
Assisted mother with a pump thru her insurance. Mother states she plans to pump and bottle feed.
[2021-01-01] MEDS: HYDROcodone/acetaminophen (*CRX) 5-325 MG TABLET 1 TAB PO ×2 (19:40→23:35)
[2021-01-01 19:42] VITALS: BP 121/70; PULSE 95; RESP 16; TEMP 36.9
[2021-01-02] MEDS: IBUPROFEN 600 MG TABLET PO (05:15)
[2021-01-02] MEDS: HYDROcodone/acetaminophen (*CRX) 5-325 MG TABLET 1 TAB PO ×2 (05:15→08:22)
[2021-01-02] MEDS: SIMETHICONE 80 MG TAB.CHEW PO ×2 (05:15→08:22)
[2021-01-02 07:35] VITALS: BP 112/70; PULSE 88; RESP 16; TEMP 36.9; O2SAT 97
[2021-01-02] MEDS: MULTIVIT/MIN/PREN/FOL AC/IRON TABLET 1 TAB PO (08:22)
[2021-01-02] MEDS: DOCUSATE SODIUM 100 MG CAPSULE PO (08:22)
[2021-01-02] MEDS: POLYSACCHARIDE IRON COMPLEX 150 MG CAPSULE PO (08:22)
--- NOTE | 2021-01-02 08:25 | PC.NURSE ---
Patient viewed the discharge video Mother & Baby Care, The First Two Weeks . Patient was given the opportunity and encouraged to ask questions. Patient verbalized understanding of information shared and has been given the mother/baby guide for home reference.
[2021-01-02] MEDS: MEASLES,MUMPS,RUBELLA VACCINE 0.5 ML VIAL SUB-Q (08:35)
--- NOTE | 2021-01-02 09:30 | PC.NURSE ---
8425 continued: Mother states when her milk is in she may attempt infant to breast. Discussed bridging to breast techniques, reviewed nipple shield cleaning and application. Stressed to call for apt or with questions.
--- NOTE | 2021-01-02 09:30 | PC.NURSE ---
Consulted with patient, mother reports she plans to pump and bottle feed. Reviewed set up of pump thru her insurance. Mother is pumping 5-6 mls per session, mother is concerned volume is not more. Assured her this is normal at this time and to continue with regular pumping with massage and warm moist heat before. Parents are able to feed by bottle, infant is eagerly nippling EBM/formula. Reviewed breast pump care and usage, pumping schedule, nipple care, and collection and storage of breast milk. Encouraged [id number], breast massage and manual expression to stimulate supply. Mother is pumping without difficulties or discomfort Mother is feeding as required and waking to feed if needed. Infant is currently meeting outcomes for weight, output, jaundice and feeding frequencies. Mother states she feels confident to current feeding plan of pump and bottle at home. Reviewed transition to breast milk, signs of adequate intake, and engorgement/relief. Instructed to call ICP if intake/output less than required. Reviewed regular medications mother is taking. Information provided per Krystal. Reviewed community resources on the [facility] website and in the Mom/Baby guide. Information on outpatient services provided. Mother has no further questions at this time. .
--- NOTE | 2021-01-02 09:52 | PM.OBPNVD ---
OB - PN: Subj Subjective Date/time seen: 01/02/21 09:52 She states she is doing well. Baby is doing well. She has adequate pain control. She has ambulated without problems. Has overall leg pain stiffness. No change since delivery. Lochia mild. Tolerating regular diet. OB - PN: Obj Data Labs CBC & Chem 7: 12/31/20 04:11 01/01/21 05:53 OB - PN A/P Assessment and Plan (1) Delivery by section using transverse incision of lower segment of uterus: Code(s): O82 - Encounter for delivery without indication Status: Acute Assessment and Plan: POD3. She is doing well. Discharge to home. Discharge precautions discussed. No signs of DVT. (2) Postoperative anemia: Code(s): D64.9 - Anemia, unspecified Status: Acute Assessment and Plan: Asymptomatic. Continue oral iron therapy. Time Spent With Patient Time: Total time spent is greater than 50% in coordination of care (as documented) at patient's floor/unit and/or counseling patient: Exam Const: General: comfortable and no acute distress Eyes: General: appearance normal, both eyes and all related structures Resp: Effort & Inspection: normal respiratory effort GI: Other: soft, uterus below umbilicus, incision intact no drainage Extrem: Other: 2+ edema bilaterally, neg Homans no erythema Psych: Mental Status: mental status grossly normal Affect: normal affect
--- NOTE | 2021-01-02 09:57 | PM.OBDSVD ---
DS: Admitting Diagnosis Admitting Diagnosis Admitting Diagnosis: 1. Induction of labor. DS: Discharge Diagnosis Discharge Diagnosis (1) Chorioamnionitis: Code(s): O41.1290 - Chorioamnionitis, unspecified trimester, not applicable or unspecified Status: Acute (2) Postoperative anemia: Code(s): D64.9 - Anemia, unspecified Status: Acute (3) Failure of descent in labor, delivered, current hospitalization: Code(s): O62.2 - Other uterine inertia Status: Acute OB - DS: Summary OB Procedures : Ultrasound OB Procedures Intrapartum: low cervical, transverse OB Procedures: : Antibiotics Peripartum Data Delivery Method: Section (Low transverse) Procedures: Procedures Operation Date: 12/30/20 19:00 Actual Procedures Side Surgeon p Section Not Applicable Jnig Ding MD complications: none Time Spent with Patient Time attestation: Total time spent providing and/or coordinating discharge services: Time spent: Less than 30 minutes Exam Const: General: no acute distress Eyes: General: appearance normal, both eyes and all related structures Resp: Effort & Inspection: normal respiratory effort GI: Inspection: normal to inspection and other (incision intact no drainage) Extrem: General: other (bilateral edema neg Homans bilat) Psych: Appearance: grossly normal DS: Data Data Completed and Pending Pending studies at discharge: Pending at discharge 12/30/20 19:24 Surgical [PTH] Routine Procedures/Treatments: 1. Induction of labor 2. Primary low transverse cesearean section Additional Comments Additional comments: Patient was admitted on 12/28/20 for medical induction of labor. Labor significant for failure to descend after over 2 hours of pushing. Chorioamnionitis. She underwent uncomplicated primary cesearean section. Postoperatively she did well. She had anemia of . She had asymptomatic post-op anemia. She had adequate pain control with medication. She was discharged to home on post op day 3. Discharge Plan Discharge Attending physician on discharge: Ilia Helm Consulting providers: Mark Miles Discharging Clinician: Ilia Helm Anticipated Discharge Date/Time: 01/02/21 10:08 Patient Disposition: Home, Self-Care Activity: may shower, no straining, may drive after 2 weeks, follow weight bearing status and pelvic rest Diet: regular Wound Care Instructions: keep dressing dry Discharge Instructions: Post ceserean sections instructions. May take over the counter Ibuprofen for pain as well as prescribed medication as needed. Continue SloFe over the counter daily. May take Miralax and Colace as needed. Patient Instructions: Antibiotic Form Stand Alone Forms: General Discharge Information Follow-up/Referrals: Jing Ding MD [Physician] - 2 Weeks (Call for appointment) Discharge Medications: New hydrocodone-acetaminophen 5-325 mg Tablet 1 tablet PO Q3H PRN (Reason: Moderate Pain (4-6)) Qty: 25 RF: 0 Continued PNV-DHA 27 mg iron-1 mg -300 mg capsule 1 cap PO HS RF: 0 Slow Fe 142 mg (45 mg iron) Tablet Extended Release 142 mg PO HS RF: 0 Discontinued acetaminophen 500 mg Capsule 1,000 mg PO Q6H PRN (Reason: Headache) RF: 0 Date of admission: 12/28/20 16:50 Primary Care Provider: Darvin Hernandez Admitting Provider: Jing Ding Attending physician on admission: Jing Ding Condition: Stable
[2021-01-05 11:07] VITALS: BP 119/68; PULSE 68; RESP 20; TEMP 36.4; O2SAT 100
== END 2021-01-02 12:30 | disposition home or self-care (01) | DRG 786 ==
LOC: ANHLDR 12-29 13:15 → ANHOB2 01-02 10:15 → ANHLDR 01-05 19:02 → ANHOB2 01-05 19:02
PROVIDERS: Admitting Provider Student in an Organized Health Care Education/Training Program; PCP Family Medicine; Visit Provider Obstetrics & Gynecology
PROC: 10D00Z1 Extraction of Products of Conception, Low, Open Approach (ICD-10-PCS; CPT 59514; principal; 2020-12-30 19:00)
DX: O62.2 Other uterine inertia (principal); O41.1230 Chorioamnionitis, third trimester, not applicable or unspecified; O75.2 Pyrexia during labor, not elsewhere classified; O99.214 Obesity complicating childbirth; E66.01 Morbid (severe) obesity due to excess calories; O99.02 Anemia complicating childbirth; D64.9 Anemia, unspecified; Z3A.39 39 weeks gestation of pregnancy; Z37.0 Single live birth
CPT/HCPCS: 36415; 80170; 82565; 85025; 86592; 86850; 86900; 86901; 88307; 90710; A9270; C1765; J0131; J0290; J0690; J1580; J1885; J2270; J2274; J2405; J2590; J2704; J2795; J7120

== ENCOUNTER 2021-04-21 10:48 | Outpatient (CLI) | payer OTHER, SELFPAY ==
--- NOTE | ~2021-04-21 | US_ITS ---
US breast RT limited DATE: 04/21/2021 11:12 INDICATION: Left breast lump in 25-year-old currently breast feeding TECHNIQUE: High-resolution ultrasound real-time and color flow imaging targeted to right breast 10:00 lesion 7 cm from nipple COMPARISON: None FINDINGS: At the area of clinical complaint of right breast lump at 10:00 7 cm from the nipple is a p arallel hypoechoic solid lesion with irregular margins and prominent surrounding an internal vascular ity, measuring up to approximately 4.3 x 2.5 x 4.7 cm. There are some areas of posterior shadowing an d centimeters with through transmission. Differential diagnosis includes fibroadenoma, malignant degeneration of fibroadenoma, carcinoma the b reast, focal inflammatory process. Ultrasound-guided biopsy is recommended. IMPRESSION: BI-RADS Category 4: Suspicious abnormality; biopsy should be considered Recommendation: Ultrasound-guided biopsy of right breast 10:[address] Mccracken telephoned the report and ultrasound guided biopsy recommendation on 04/21/[address] Ding's Ware Tester's voicemail. Reviewed, dictated and finalized at [facility]. Reviewed, dictated and finalized at [facility]. IMPRESSION: BI-RADS Category 4: Suspicious abnormality; biopsy should be consid ered Recommendation: Ultrasound-guided biopsy of right breast 10:[address] Mccracken telephoned the report and ultrasound guided biopsy recommendation on at [address] Ding's Ware Tester's voicemail.
== END 2021-04-21 10:49 | disposition home or self-care (01) ==
PROVIDERS: PCP Family Medicine; Visit Provider Student in an Organized Health Care Education/Training Program
DX: N63.0 Unspecified lump in unspecified breast (principal); R92.8 Other abnormal and inconclusive findings on diagnostic imaging of breast
CPT/HCPCS: 76642

== ENCOUNTER 2021-08-18 09:39 | Emergency (ER) | payer OTHER, SELFPAY ==
--- NOTE | ~2021-08-18 | XR_ITS ---
EXAMINATION: XR ankle RT min 3V DATE: 08/18/2021 10:28 INDICATION: Right ankle injury and pain. TECHNIQUE: 4 views of right ankle were obtained. COMPARISON: None. FINDINGS: Bone alignment is normal. No fracture. Joint spaces are well maintained. There is ankle sof t tissue swelling. IMPRESSION: 1. No fracture. Reviewed, dictated and finalized at [facility]. IMPRESSION: 1. No fracture.
[2021-08-18 09:54] VITALS: BP 137/80; PULSE 99; RESP 14; TEMP 36.7; O2SAT 100
--- NOTE | 2021-08-18 09:57 | ED.LOWEXIN ---
HPI - Extremity Injury (Lower) General Chief Complaint: Extremity Injury, Lower Stated Complaint: Fall Injury/Ankle Injury Time Seen by Provider: 08/18/21 10:38 Source: patient and RN notes reviewed Mode of arrival: ambulatory Limitations: no limitations History of Present Illness HPI Narrative: 26-year-old female presents concern for right ankle pain. Reports she rolled her ankle yesterday stepping on a rug that slipped. She reports lateral pain. Reports she is unable to bear weight without pain, she has been using crutches for mobility. Reports she has been using an Mayito wrap. Reports she has been taking Tylenol. Reports she has breast-feeding a 7-month-old infant complaint: ankle injury Related Data Home Medications Medication Instructions Recorded Confirmed No Home Medications 08/18/21 08/18/21 Allergies Allergy/AdvReac Type Severity Reaction Status Date / Time No Known Allergies Allergy Verified 08/18/21 10:00 Review of Systems Review of Systems: CONSTITUTIONAL: Denies malaise, chills, sweats, or fever. SKIN: Denies rash or itching, lacerations or abrasions, redness or warmth MUSCULOSKELETAL: Reports right lateral ankle pain and swelling NEUROLOGIC: Denies numbness, weakness. All systems reviewed & are unremarkable except as noted in HPI and below PMFSH Past Medical History Medical History Anxiety Body mass index (BMI) of 40.1 to 44.9 in adult HSV-1 (herpes simplex virus 1) infection Morbid obesity Surgical History Surgical History History of delivery x1 [place] teeth removed Family History Family History Grandparent Diabetes mellitus Carcinoma of colon Father Hypertension Family history of migraine headaches Sibling Family history of migraine headaches Social History Social History Second hand tobacco smoke exposure: No Alcohol intake: current Substance use: never Substance use type: does not use Spiritual care concerns: No Comments At time of signature, agree with nursing past medical, surgical, social and family history. There is no relevant family history pertinent to the presenting complaint Exam Narrative: GENERAL: Well-appearing, well-nourished, and in no acute distress. HEAD: Normocephalic, atraumatic. EYES: PERRLA, conjunctivae clear NECK: Supple. CHEST: Speaks in full sentences. No respiratory distress. HEART: Regular rate and rhythm. Normal and equal peripheral pulses. EXTREMITIES: Right ankle, foot, digits have normal strength and sensation, normal range of motion. Moderate lateral edema without ecchymosis. 5/5 strength with digit flexion and extension. Normal sensation with sensitivity to light touch and pain. Lateral ankle tenderness. No open wounds, no skin tenting, no devitalized tissue or atrophy, no trophic changes, no obvious deformity, alignment normal, nearby joints and structures intact. Distal pulses palpable and equal bilaterally, skin warm, dry, pink. Capillary refill less than 3 seconds. SKIN: Warm, dry, no rash. NEURO: Alert and oriented x3. PSYCH: Normal mood and affect Course Course Emergency Course: Patient is aware of diagnosis, understands and agrees to treatment plan. Anticipatory guidance given. Patient agrees to follow-up as directed and is aware of reasons to seek care at the emergency department. Portions of this record may have been created with voice recognition software Vital Signs Vital signs: Reviewed. MDM - Extremity Injury (Lower) MDM Narrative Medical decision making narrative: Patients injury and pain is consistent with musculoskeletal etiology. No signs of neurological or vascular compromise on exam. Compartments and tissues are soft without signs of compartment syndrome. Pain is felt
== END 2021-08-18 10:53 | disposition home or self-care (01) ==
PROVIDERS: Emergency Provider Nurse Practitioner; PCP Family Medicine
DX: S93.401A Sprain of unspecified ligament of right ankle, initial encounter (principal); X50.9XXA Other and unspecified overexertion or strenuous movements or postures, initial encounter; E66.01 Morbid (severe) obesity due to excess calories; Z68.41 Body mass index [BMI] 40.0-44.9, adult
CPT/HCPCS: 73610; 99213; G0463

== ENCOUNTER 2022-04-10 07:17 | Outpatient (CLI) | payer OTHER, SELFPAY ==
[2022-04-10 08:02] LABS: Basophils Percent Auto 0.4 % (0.2-1.2); Eosinophils Absolute Auto 0.4 K/mm3 (0-0.3); Eosinophils Percent Auto 5.3 % (0-4.4); Hematocrit 37.2 % (37.0-47.0); Hemoglobin 11.4 g/dL (12.0-15.0); Immature Granulocyte Absolute 0.02 K/mm3 (0.00-0.031); Immature Granulocyte Percent A 0.3 % (0-0.5); Lymphocytes Absolute Auto 2.31 K/mm3 (0.9-3.2); Lymphocytes Percent Auto 30.8 % (18.3-44.2); Mean Corpuscular HGB Conc 30.6 g/dl (32-36); Mean Corpuscular Hemoglobin 25.6 pg (26-34); Mean Corpuscular Volume 83.6 fl (80-100); Monocytes Absolute Auto 0.6 K/mm3 (0.1-0.6); Monocytes Percent Auto 8.1 % (2.6-8.5); Neutrophils Absolute Auto 4.1 K/mm3 (1.3-6.7); Neutrophils Percent Auto 55.1 % (45.5-73.1); Platelet Count Result 287 k/mm3 (150-375); Red Blood Count 4.45 M/mm3 (4.2-5.4); Red Cell Distribution Width 14.7 % (11.5-14.5); White Blood Count 7.5 K/mm3 (4.5-10.0)
[2022-04-10 08:20] LABS: Alanine Aminotransferase 22 U/L (6-35); Albumin Level 4.2 g/dL (3.5-5.1); Alkaline Phosphatase 68 U/L (38-126); Anion Gap 8 mmol/L (8-16); Aspartate Amino Transferase 26 U/L (14-36); Bilirubin,Total 0.6 mg/dL (0.2-1.3); Blood Urea Nitrogen 15 mg/dL (7-17); Calcium 8.5 mg/dL (8.4-10.2); Carbon Dioxide 27 mmol/L (22-30); Chloride 108 mmol/L (98-107); Estimated Glomerular Filt Rate > 60; Glucose 104 mg/dL (65-110); Potassium 4.1 mmol/L (3.4-5.0); Sodium 143 mmol/L (137-145)
[2022-04-10 09:15] LABS: Vitamin D 25 Hydroxy 48.7 ng/mL
== END 2022-04-10 07:18 | disposition home or self-care (01) ==
LOC: ANHLAB 07:18
PROVIDERS: PCP Family Medicine; Visit Provider Nurse Practitioner Family
DX: R53.83 Other fatigue (principal); Z68.41 Body mass index [BMI] 40.0-44.9, adult; E55.9 Vitamin D deficiency, unspecified; Z13.29 Encounter for screening for other suspected endocrine disorder; Z13.1 Encounter for screening for diabetes mellitus
CPT/HCPCS: 36415; 80053; 82306; 82607; 84443; 85025

== ENCOUNTER 2025-06-04 13:10 | Outpatient (CLI) | payer BC, SELFPAY ==
--- NOTE | ~2025-06-04 | US_ITS ---
Renal-Bladder ultrasound Clinical History: Dysuria Technique: Real-time sonographic imaging of the kidneys and urinary bladder was performed. Findings: The right kidney measures 10.3 cm in length and the left kidney measures 12.0 cm. There is no hydronephrosis or renal calculus identified. Renal cortical echogenicity is within normal limits. No renal mass lesion is identified. The urinary bladder is moderately distended at the time of this exam. No intraluminal echoes are iden tified. No abnormal wall thickening is seen. Impression: Unremarkable ultrasound of the kidneys and urinary bladder. Reviewed, dictated and finalized at [facility]. Impression: Unremarkable ultrasound of the kidneys and urinary bladder.
== END 2025-06-04 13:11 | disposition home or self-care (01) ==
LOC: MICIMG 13:12
PROVIDERS: PCP Family Medicine; Visit Provider Nurse Practitioner Adult Health
DX: R30.0 Dysuria (principal); R35.0 Frequency of micturition
CPT/HCPCS: 76775

== ENCOUNTER 2025-06-04 13:13 | Outpatient (CLI) | payer BC, SELFPAY ==
--- NOTE | ~2025-06-04 | US_ITS ---
Pelvic ultrasound. Clinical History: Pelvic pain Technique: Realtime transabdominal and transvaginal scanning of the pelvis was performed. Color flow Doppler and Doppler spectral analysis were performed. Findings: The uterus is retroverted.. The endometrial stripe has a thickness of 7 mm. No focal mass is identified. The right ovary measures 4.4 x 2.9 x 4.7 cm. Right ovarian cyst measures 2.8 cm in diameter. The left ovary measures 2.3 x 3.7 x 2.2 cm. No significant left ovarian or adnexal mass is seen. Vascular flow present in both ovaries on Doppler spectral analysis. There is no evidence of free fluid in the cul de sac. Impression: 2.8 cm right ovarian cyst. Reviewed, dictated and finalized at [facility]. Impression: 2.8 cm right ovarian cyst.
== END 2025-06-04 13:14 | disposition home or self-care (01) ==
LOC: MICIMG 13:14
DX: R10.2 Pelvic and perineal pain (principal); N83.201 Unspecified ovarian cyst, right side
CPT/HCPCS: 76830; 76856